=== PATIENT | male | born 1955 | race Caucasian/White ===

== ENCOUNTER 2017-12-18 06:51 | Inpatient (IN) ==
[2017-12-17 12:05] LABS: Basophils % 0.4 % (0.0-0.8); Eosinophils # 0.1 10*3/uL (0.0-0.87); Eosinophils % 2.1 % (0.00-10.9); Hematocrit 43.6 VOL% (42.0-52.0); Immature Granulocytes % 0.4 %; Immature Granulocytes Absolute 0.03 #; Lymphocytes # 2.2 10*3/uL (1.4-4.0); Lymphocytes % 32.3 % (21.2-54.2); Mean Corpuscular HGB Conc 34.4 GM/DL (32-36); Mean Corpuscular Hemoglobin 32 PG (27-34); Mean Corpuscular Volume 91.8 FL (87-102); Mean Platelet Volume 9.9 FL (9.6-12.0); Monocytes # 0.5 10*3/uL (0.11-0.8); Monocytes % 6.9 % (1.7-12.7); Neutrophils # 3.9 10*3/uL (1.4-7.4); Neutrophils % 57.9 % (38.7-73.9); Platelet Count 218 T/CUMM (130-400); Red Blood Count 4.75 MC/CUMM (3.8-5.5); Red Cell Distribution Width 12.8 % (9.3-17.3); White Blood Count 6.8 T/CUMM (4-12)
[2017-12-17 12:27] LABS: Albumin 3.4 G/DL (3.4-5.0); Bilirubin,Total 0.4 MG/DL (0.2-1.0); Osmolality,Calculated 275.7 MOS/KG (273-304); Potassium 4.7 MMOL/L (3.5-5.1); Total Protein 6.8 G/DL (6.4-8.3)
[2017-12-18] MEDS ORDERED: ceFAZolin 1,000 MG VIAL ONE (07:44)
[2017-12-18] MEDS ORDERED: LACTATED RINGERS 1,000 ML IV SCH (08:00)
[2017-12-18] MEDS ORDERED: HEPARIN 5,000 UNIT/1 ML VIAL ONE ×2 (08:00→10:26)
[2017-12-18] MEDS ORDERED: ceFAZolin 1,000 MG in SYRINGE 1 EACH IV ONE (08:00)
[2017-12-18] MEDS ORDERED: VANCOMYCIN 500 MG VIAL ONE (08:01)
[2017-12-18] MEDS ORDERED: THROMBIN TOPICAL (RECOMBINANT) 5,000 UNIT VIAL TOP ONE (08:01)
[2017-12-18 08:58] LABS: INR 0.9; PT Patient Result 9.4 SECS; Partial Thromboplastin Time 25.8 SECS (0-40)
[2017-12-18] MEDS ORDERED: ALBUMIN 5% 12.5 GM/250 ML VIAL IV ONE (10:35)
[2017-12-18] MEDS ORDERED: ONDANSETRON 4 MG/2 ML VIAL IV PRN (12:06)
[2017-12-18] MEDS ORDERED: HYDROmorphone 2 MG/1 ML VIAL IV PRN (12:06)
[2017-12-18] MEDS ORDERED: NITROGLYCERIN SL 0.4 MG TABLET SL PRN (12:09)
[2017-12-18] MEDS ORDERED: SEVOFLURANE 1 UNIT/15 MINUTE INH ONE (12:20)
[2017-12-18] MEDS ORDERED: PROPOFOL 200 MG/20 ML VIAL IV ONE (12:20)
[2017-12-18] MEDS ORDERED: NEOSTIGMINE 10 MG/10 ML VIAL ONE (12:21)
[2017-12-18] MEDS ORDERED: GLYCOPYRROLATE 0.4 MG/2 ML VIAL ONE (12:21)
[2017-12-18] MEDS ORDERED: PHENYLEPHRINE 1 MG/10 ML SYRINGE IV ONE (12:21)
[2017-12-18] MEDS ORDERED: SODIUM CHLORIDE 0.9% 200 ML IV ONE (12:21)
[2017-12-18] MEDS ORDERED: ETOMIDATE 40 MG/20 ML VIAL IV ONE (12:21)
[2017-12-18] MEDS ORDERED: PHENYLEPHRINE 10 MG/1 ML VIAL IV ONE (12:21)
[2017-12-18] MEDS ORDERED: ONDANSETRON 4 MG/2 ML VIAL ONE (12:21)
[2017-12-18] MEDS ORDERED: ROCURONIUM 100 MG/10 ML VIAL IV ONE (12:22)
[2017-12-18] MEDS ORDERED: HEPARIN 10,000 UNIT/10 ML VIAL ONE (12:27)
[2017-12-18] MEDS: LACTATED RINGERS 1,000 ML IV SCH ×2 (13:31→16:31)
[2017-12-18 16:08] LABS: Apearance,Urine CLEAR (Clear); Bilirubin,Urine Negative (Negative); Blood, Urine Negative (Negative); Glucose,Urine (UA) Negative (Negative); Ketones,Urine Negative (Negative); Nitrite,Urine Negative (Negative); Protein,Urine Negative; RBC,Urine 1 /HPF (0-4); Urine Color Yellow (Yellow); Urine Specific Gravity 1.023 (1.001-1.035); Urine Urobilinogen < 2.0 EU/DL (0.2-1.0); WBC,Urine 43 /HPF (0-6)
[2017-12-18] MEDS: CARVEDILOL 12.5 MG TABLET PO SCH (17:14)
[2017-12-18] MEDS: MAGNESIUM CHLORIDE 64 MG TABLET PO SCH (21:27)
[2017-12-18] MEDS: VENLAFAXINE 75 MG TABLET PO SCH (21:27)
[2017-12-18] MEDS ORDERED: ALUMINUM/MAGNES/SIMETH MAX STR 30 ML UDCUP PO ONE (22:00)
[2017-12-19] MEDS: LACTATED RINGERS 1,000 ML IV SCH ×2 (00:40→06:58)
[2017-12-19 05:05] LABS: Hematocrit 33.4 VOL% (42.0-52.0); Hemoglobin 10.9 GM/DL (14.0-18.0)
[2017-12-19 05:26] LABS: Calcium 8.1 MG/DL (8.5-10.1); Osmolality,Calculated 284.1 MOS/KG (273-304)
[2017-12-19] MEDS ORDERED: ENOXAPARIN 40 MG/0.4 ML SYRINGE SUBCUT SCH (06:09)
[2017-12-19] MEDS ORDERED: LEVOTHYROXINE 25 MCG TABLET PO SCH (06:30)
[2017-12-19] MEDS: MAGNESIUM CHLORIDE 64 MG TABLET PO SCH (08:50)
[2017-12-19] MEDS: CARVEDILOL 12.5 MG TABLET PO SCH (08:51)
[2017-12-19] MEDS: VENLAFAXINE 75 MG TABLET PO SCH (08:51)
[2017-12-19] MEDS ORDERED: MULTIVITAMIN (CENTRUM) TABLET PO SCH (09:00)
[2017-12-19] MEDS ORDERED: ASCORBIC ACID 500 MG TABLET PO SCH (09:00)
[2017-12-19] MEDS ORDERED: CLOPIDOGREL 75 MG TABLET PO SCH (09:00)
[2017-12-19] MEDS ORDERED: FOSINOPRIL 10 MG TABLET PO SCH (09:00)
[2017-12-19] MEDS ORDERED: EZETIMIBE 10 MG TABLET PO SCH (09:00)
[2017-12-19] MEDS ORDERED: OMEGA 3 ACID ETHYL ESTERS 1 GM CAPSULE PO SCH (09:00)
[2017-12-19] MEDS ORDERED: APIXABAN 5 MG TABLET PO SCH (09:00)
[2017-12-19] MEDS ORDERED: ROSUVASTATIN 10 MG TABLET PO SCH (09:00)
[2017-12-19] MEDS ORDERED: COENZYME Q10 100 MG CAPSULE PO SCH (09:00)
[2017-12-19] MEDS ORDERED: CYANOCOBALAMIN 500 MCG TABLET PO SCH (09:00)
[2017-12-19] MEDS ORDERED: ASPIRIN EC 81 MG TABLET PO SCH (09:00)
[2017-12-19] MEDS ORDERED: PANTOPRAZOLE 40 MG TABLET PO SCH (09:00)
[2017-12-19] MEDS ORDERED: FUROSEMIDE 20 MG TABLET PO SCH (09:00)
[2017-12-19] MEDS ORDERED: NIACIN 500 MG TABLET PO SCH (09:00)
[2017-12-19 11:17] VITALS: BP 106/70
== END 2017-12-19 15:08 | disposition home or self-care (01) | DRG 254 ==
LOC: N.SDS 06:51 → N.SDSINP 07:50 → EDSTATUS 09:00 → N.SDSINP 12:06 → N.3E 14:06
PROVIDERS: ADMIT Surgery; ATTEND Surgery